=== PATIENT | female | born 2005 | race Two or more races ===

== ENCOUNTER 2024-06-26 23:01 | Emergency (ER) | payer OTHER ==
[~2024-06-26] VITALS: Ht 167.6 cm; Wt 59.0 kg
[2024-06-27] MEDS ORDERED: FAMOTIDINE/PF 20 MG/2 ML VIAL IV PUSH STA (01:17)
[2024-06-27] MEDS ORDERED: ONDANSETRON HCL 2 MG/ML VIAL IV STA (01:18)
[2024-06-27] MEDS ORDERED: SUCRALFATE 1 G TABLET PO STA (01:18)
[2024-06-27 02:04] LABS: HEMATOCRIT 35.7 % (36.0-45.00); MEAN CELL VOLUME 88.5 fL (80.00-100.00); MEAN CORPUSCULAR HEMOGLOBIN 29.7 pg (27.00-32.0); MEAN CORPUSCULAR HGB CONC 33.6 g/dl (32.0-36.0); PLATELET COUNT 355 K/uL (150-450); RED BLOOD COUNT 4.03 M/uL (4.00-6.00); RED CELL DISTRIBUTION WIDTH 13.8 % (11.5-14.5)
[2024-06-27] MEDS ORDERED: CARAFATE1 GM PO (04:41)
[2024-06-27] MEDS ORDERED: ZOFRAN8 MG PO (04:41)
== END 2024-06-27 04:51 ==
LOC: ER 23:03
PROVIDERS: General Practice
DX: K21.9 Gastro-esophageal reflux disease without esophagitis (principal)

== ENCOUNTER 2025-04-03 18:20 | Emergency (ER) | payer OTHER ==
[~2025-04-03] VITALS: Ht 162.6 cm; Wt 54.4 kg
[~2025-04-03 18:20] MED LIST: CARAFATE1 GM PO; ZOFRAN8 MG PO
[2025-04-03 18:51] VITALS: BP 120/80; O2SAT 98
[2025-04-03] MEDS ORDERED: KETOROLAC TROMETHAMINE 30 MG VIAL IM STA (18:57)
[2025-04-03] MEDS ORDERED: DEXAMETHASONE SODIUM PHOSPHATE 4 MG/ML VIAL IM STA (18:58)
[2025-04-03] MEDS ORDERED: DEXAMETHASONE SODIUM PHOSPHATE 4 MG/ML VIAL ONE (19:01)
[2025-04-03] MEDS ORDERED: KETOROLAC TROMETHAMINE 30 MG VIAL ONE (19:01)
[2025-04-03 19:36] LABS: BASO % 0.8 % (0.1-1.2); EOS # 0.19 (0.04-0.54); EOS % 2.2 % (0.7-7.0); LYMPH # 2.79 (1.18-3.74); LYMPH % 31.9 % (19.3-53.1); MEAN PLATELET VOLUME 9.30 fl (9.4-12.4); MONO # 0.61 (0.24-0.82); MONO % 7.0 % (4.7-12.5); NEUT # 5.05 (1.56-6.13); NEUT % 57.8 % (34.0-71.1); RED CELL DISTRIBUTION WIDTH 12.8 % (11.6-14.4)
[2025-04-03 19:58] LABS: INR 1.09
[2025-04-03 19:59] LABS: BUN CREA RATIO 16.0 (7.0-25.0); CREATININE SERUM 0.77 mg/dL (0.55-1.02); GFR 94.63; GLUCOSE FASTING 108.0 mg/dL (65-100); OSMOLALITY SERUM 283.0 MOSM/KG (275-295)
== END 2025-04-03 22:26 | disposition home or self-care (01) ==
LOC: ER 18:20
PROVIDERS: General Practice
DX: M94.0 Chondrocostal junction syndrome [Tietze] (principal)